=== PATIENT | female | born 1975 | race Caucasian/White ===

== ENCOUNTER 2018-04-04 17:12 | Outpatient (CLI) | payer BC, MEDICAID | END 2018-04-04 18:14 | disposition home or self-care (01) | LOC: LC 17:12 | PROVIDERS: ATTEND Obstetrics & Gynecology | PROC: 4A1HXCZ Monitoring of Products of Conception, Cardiac Rate, External Approach (ICD-10-PCS; principal; 2018-04-04) | DX: O09.523 Supervision of elderly multigravida, third trimester (principal); O26.893 Other specified pregnancy related conditions, third trimester; R00.0 Tachycardia, unspecified; Z3A.36 36 weeks gestation of pregnancy | CPT/HCPCS: 59025 ==

== ENCOUNTER 2018-04-11 16:34 | Outpatient (CLI) | payer BC, MEDICAID | END 2018-04-11 17:04 | disposition home or self-care (01) | LOC: LC 16:34 | PROVIDERS: ATTEND Obstetrics & Gynecology | DX: Z34.83 Encounter for supervision of other normal pregnancy, third trimester (principal) | CPT/HCPCS: 59025 ==

== ENCOUNTER 2018-04-18 14:16 | Outpatient (CLI) | payer BC, MEDICAID ==
--- NOTE | 2018-04-18 18:21 | Non Stress Test Report ---
Non Stress Test Datetime Report Generated by CPN: 04/18/2018 18:20 DEMOGRAPHIC Test Number: 1 Test Number: 1 EGA NST: 38.1 EGA NST: 37.1 EGA NST: 36.1 INDICATION Indication for Study: Ordered by Provider; Other Indication for Study: Ordered by Provider Indication for Study: Ordered by Provider Indication for Study (NST) Other: AMA Indication for Study (NST) Other: tachycardia in office VITAL SIGNS Temperature - NST: 98.4 Temperature - NST: 98.3 Pulse - NST: 93 Pulse - NST: 70 RESP - NST: 16 RESP - NST: 16 NBPSYS NST: 143 NBPSYS NST: 118 NBPDIA NST: 74 NBPDIA NST: 67 MONITORING Monitor Explained: Monitor Explained; Test Explained; Patient Verbalized Understanding Monitor Explained: Monitor Explained; Test Explained; Patient Verbalized Understanding Monitor Explained: Monitor Explained; Test Explained; Patient Verbalized Understanding Monitor Explained: Monitor Explained; Test Explained Time on Monitor: 04/18/2018 15:45 Time on Monitor: 04/11/2018 16:42 Time on Monitor: 04/04/2018 17:34 Time on Monitor: 04/04/2018 17:34 Time off Monitor: 04/18/2018 16:50 Time off Monitor: 04/11/2018 17:02 Time off Monitor: 04/04/2018 18:06 NST Duration: 65 NST Duration: 20 NST Duration: 32 NST INTERVENTIONS NST Interventions: PO Hydration; Reposition Patient NST Interventions: PO Hydration NST Interventions: PO Hydration; Reposition Patient Physician Notified NST: Hannah Theodore CNM Physician Notified NST: Yane Luz CNM Physician Notified NST: Dr Miranda BABY A: [id number] BABY A Movement : Present Movement : Present Movement : Present Movement : Present Contraction Frequency : denies Contraction Frequency : iregular Contraction Frequency : 0 Contraction Frequency : 0 FHR Baseline : 150 FHR Baseline : 130 FHR Baseline : 135 FHR Baseline : 135 Accelerations : Prolonged Accelerations : 15X15 Accelerations : 15X15 Accelerations : 15X15 Decelerations : None Decelerations : None Decelerations : None Variability : Moderate 6-25bpm Variability : Moderate 6-25bpm Variability : Moderate 6-25bpm Variability : Moderate 6-25bpm NST Review: Meets Criteria for Reactive NST NST Review: Meets Criteria for Reactive NST NST Review: Meets Criteria for Reactive NST NST Review: Meets Criteria for Reactive NST NST Review: Meets Criteria for Reactive NST NST Review and Verified By : Iona RICHARDSON NST Review and Verified By : VALORIE SHARMA RN NST Review and Verified By : C. Mcarthur,RN NST Results: Reactive NST Results: Reactive NST Results: Reactive NST Results: Reactive NST REPORT Report Trigger: Send Report
== END 2018-04-18 16:59 | disposition home or self-care (01) ==
LOC: LC 14:16
PROVIDERS: ATTEND Obstetrics & Gynecology
PROC: 4A1HXCZ Monitoring of Products of Conception, Cardiac Rate, External Approach (ICD-10-PCS; principal; 2018-04-18)
DX: O36.8330 Maternal care for abnormalities of the fetal heart rate or rhythm, third trimester, not applicable or unspecified (principal); O09.523 Supervision of elderly multigravida, third trimester; Z3A.38 38 weeks gestation of pregnancy
CPT/HCPCS: 59025

== ENCOUNTER 2018-04-21 11:17 | Outpatient (CLI) | payer BC, MEDICAID ==
--- NOTE | 2018-04-21 12:18 | Non Stress Test Report ---
Non Stress Test Datetime Report Generated by CPN: 04/21/2018 12:18 DEMOGRAPHIC EGA NST: 38.4 INDICATION Indication for Study: Ordered by Provider MONITORING Monitor Explained: Monitor Explained; Test Explained Time on Monitor: 04/21/2018 11:25 Time off Monitor: 04/21/2018 11:52 NST Duration: 27 NST INTERVENTIONS NST Interventions: PO Hydration NST Interventions Other: [place] Physician Notified NST: Zahraa Merchant CNM BABY A: [id number] BABY A Movement : Present Contraction Frequency : irregular FHR Baseline : 140 Accelerations : 15X15 Decelerations : None Variability : Moderate 6-25bpm NST Review: Does Not Meet Criteria for Reactive NST NST Review and Verified By : ANCA Caro Results: Reactive NST REPORT Report Trigger: Send Report
== END 2018-04-21 11:58 | disposition home or self-care (01) ==
LOC: LC 11:17
PROVIDERS: ATTEND Obstetrics & Gynecology Gynecology
PROC: 4A1HXCZ Monitoring of Products of Conception, Cardiac Rate, External Approach (ICD-10-PCS; principal; 2018-04-21)
DX: Z34.93 Encounter for supervision of normal pregnancy, unspecified, third trimester (principal)
CPT/HCPCS: 59025

== ENCOUNTER 2018-04-26 15:30 | Outpatient (CLI) | payer BC, MEDICAID ==
[2018-04-26 17:05] LABS: APPEARANCE,URINE SLIGHTLY-CLOUDY; BILIRUBIN,URINE NEGATIVE (NEGATIVE); COLOR,URINE YELLOW; GLUCOSE, URINE NEGATIVE (NEGATIVE); KETONES,URINE NEGATIVE (NEGATIVE); LEUKOCYTE ESTERASE,URINE TRACE (NEGATIVE); NITRITE,URINE NEGATIVE (NEGATIVE); PROTEIN,URINE 30 mg/dL (NEGATIVE); URINE SPECIFIC GRAVITY 1.014; UROBILINOGEN,URINE NEGATIVE mg/dL (<2.0)
[2018-04-26 17:22] LABS: URINE AMPHETAMINES SCREEN NEGATIVE; URINE BARBITURATES SCREEN NEGATIVE; URINE BENZODIAZEPINES SCREEN NEGATIVE; URINE COCAINE SCREEN NEGATIVE; URINE MARIJUANA (THC) SCREEN NEGATIVE; URINE METHADONE SCREEN NEGATIVE; URINE PHENCYCLIDINE SCREEN NEGATIVE
[2018-04-26] MEDS ORDERED: HYDROXYZINE PAMOATE 50 MG CAPSULE ONE (17:42)
[2018-04-26] MEDS ORDERED: HYDROXYZINE PAMOATE 50 MG CAPSULE PO ONE (17:47)
== END 2018-04-26 17:58 | disposition home or self-care (01) ==
LOC: LC 15:30
PROVIDERS: ATTEND Obstetrics & Gynecology
PROC: 4A1HXCZ Monitoring of Products of Conception, Cardiac Rate, External Approach (ICD-10-PCS; principal; 2018-04-26)
DX: O47.1 False labor at or after 37 completed weeks of gestation (principal); O09.523 Supervision of elderly multigravida, third trimester; Z3A.39 39 weeks gestation of pregnancy
CPT/HCPCS: 59025; 80307; 81005

== ENCOUNTER 2018-04-26 20:21 | Inpatient (IN) | payer BC, MEDICAID ==
[2018-04-26 21:17] LABS: APPEARANCE,URINE CLEAR; BILIRUBIN,URINE NEGATIVE (NEGATIVE); COLOR,URINE STRAW; GLUCOSE, URINE NEGATIVE (NEGATIVE); KETONES,URINE TRACE mg/dL (NEGATIVE); LEUKOCYTE ESTERASE,URINE NEGATIVE (NEGATIVE); NITRITE,URINE NEGATIVE (NEGATIVE); PROTEIN,URINE NEGATIVE (NEGATIVE); URINE SPECIFIC GRAVITY 1.003; UROBILINOGEN,URINE NEGATIVE mg/dL (<2.0)
[2018-04-26 21:23] LABS: ABSOLUTE MONOCYTES (AUTO) 0.7 10^3/uL (0.1-1.4); ABSOLUTE NEUT (AUTO) 9.6 10^3/uL (1.7-8.2); BASOPHILS % (AUTO) 0.2 % (0-2); EOSINOPHILS % (AUTO) 0.1 % (0-6); HEMATOCRIT 37.3 % (36.0-47.0); HEMOGLOBIN 12.6 g/dL (12.0-15.5); LYMPHOCYTES % (AUTO) 16.5 % (13-45); MEAN CORPUSCULAR HEMOGLOBIN 28.7 pg (27.0-33.4); MEAN CORPUSCULAR HGB CONC 33.8 g/dL (32.0-36.0); MEAN CORPUSCULAR VOLUME 85 fl (80-97); MONOCYTES % (AUTO) 5.6 % (3-13); PLATELET COUNT 228 10^3/uL (150-450); RED BLOOD COUNT 4.41 10^6/uL (3.72-5.28); RED CELL DISTRIBUTION WIDTH 14.1 % (11.5-14.0); SEGMENTED NEUTROPHILS % (AUTO) 77.6 % (42-78); TOTAL CELLS COUNTED % (AUTO) 100 %; WHITE BLOOD COUNT 12.4 10^3/uL (4.0-10.5)
[2018-04-26] MEDS ORDERED: CEFAZOLIN 2 GM/D5W RTU 0 GM/0 ML RTUPB IV ONE (21:30)
[2018-04-26] MEDS ORDERED: CITRIC ACID/SODIUM CITRATE ORAL SOLN 15 ML UDCUP ONE (21:30)
[2018-04-26] MEDS ORDERED: CEFAZOLIN 2 GM/D5W RTU 2 GM/50 ML RTUPB IV ONE (21:40)
[2018-04-26] MEDS ORDERED: MISOPROSTOL 0.2 MG TABLET ONE (21:40)
[2018-04-26] MEDS ORDERED: METHYLERGONOVINE MALEATE INJ/PF 0.2 MG/1 ML AMPULE ONE (21:41)
[2018-04-26 21:55] LABS: URINE AMPHETAMINES SCREEN NEGATIVE; URINE BARBITURATES SCREEN NEGATIVE; URINE BENZODIAZEPINES SCREEN NEGATIVE; URINE COCAINE SCREEN NEGATIVE; URINE MARIJUANA (THC) SCREEN NEGATIVE; URINE METHADONE SCREEN NEGATIVE; URINE PHENCYCLIDINE SCREEN NEGATIVE
[2018-04-26] MEDS ORDERED: OXYTOCIN 10 UNIT/ML VIAL ONE (21:58)
[2018-04-26] MEDS ORDERED: OXYTOCIN/NORMAL SALINE 20 UNIT/1,000 ML RTUINJ ONE (21:59)
[2018-04-26] MEDS ORDERED: ONDANSETRON HCL INJ/PF 4 MG/2 ML SDV ONE (21:59)
[2018-04-26] MEDS ORDERED: BUPIVACAINE HCL/DEX-WATER/PF 15 MG/2 ML AMPULE ONE (21:59)
[2018-04-26] MEDS ORDERED: EPHEDRINE SULFATE INJ 50 MG/1 ML AMPULE ONE (21:59)
[2018-04-26] MEDS ORDERED: FENTANYL CITRATE INJ/PF 100 MCG/2 ML AMPUL ONE ×2 (21:59→23:40)
[2018-04-26] MEDS ORDERED: MIDAZOLAM 2 MG/2 ML INJ ONE (21:59)
--- NOTE | 2018-04-26 22:15 | Admission Physical ---
Datetime Report Generated by CPN: 04/26/2018 22:14 CURRENT ADMISSION Chief Complaint: Uterine Contractions Indication for Induction: Not Applicable Admit Impression : Term, Intrauterine Admit Impression- Other: pt scheduled for primary c/section on Apr 29 due to suspected macrosomia. Desires to proceed with c/section at this time. Admit Plan: Admit to Unit; Initiate Section Protocol ALLERGIES Medication Allergies: No Medication Allergies: No Known Allergies (04/26/2018) Latex: No Latex Allergies Food Allergies: none Environmental Allergies: none OBSTETRICAL HISTORY EDC: 05/01/2018 00:00 : 4 Para: 2 Term: 2 : 0 SAB: 0 IAB: 0 Ectopic: 0 Livin Cesareans: 0 VBACs: 0 Multiple Births: 0 Gestational Diabetes: No Rh Sensitization: No Incompetent Cervix: No MIQUEL: No Infertility: No ART Treatment: No Uterine Anomaly: No IUGR: No Hx Previous C/S: No Macrosomia: No Hx Loss/Stillborn: No PIH: No Hx : No Placenta Previa/Abruption: No Depression/PP Depression: No PTL/PROM: No Post Hemorrhage: No Current Procedures: Ultrasound; NST Obstetrical History Comments: G1-2002 EAB G2- 2007 41 week G3- 2011 41 weeks G4- current SEE RECORDS Alcohol: No Marijuana : No Cocaine: No Other Illicit Drugs: No Cigarettes: Former Smoker. [id number] MEDICAL HISTORY Diabetes: No Blood Transfusion: No Pulmonary Disease (Asthma, TB): No Breast Disease: No Hypertension: No Welt Insole Channeler Surgery: No Heart Disease: No Hosp/Surgery: Yes Autoimmune Disorder: No Anesthetic Complications: No Kidney Disease: No Abnormal Pap Smear: No Neuro/Epilepsy: No Psychiatric Disorders: Yes Other Medical Diseases: No Hepatitis/Liver Disease: No Significant Family History: No Varicosities/Phlebitis: No Trauma/Violence : No Thyroid Dysfunction: No Medical History Comments: childbirth, tonsilectomy at 19 y/o, anxiety- no meds INFECTIOUS HISTORY Gonorrhea: No Genital Herpes: No Chlamydia: No Tuberculosis: No Syphilis: No Hepatitis: No HIV/AIDS Exposure: No Rash or Viral Illness: No HPV: No PHYSICAL EXAM General: Normal HEENT: Normal Neurologic: Normal Thyroid: Normal Heart: Normal Lungs: Normal Breast: Normal Back: Normal Abdomen: Normal Genitourinary Exam: Normal Extremities: Normal DTRs: Normal Pelvic Type: Adequate Vital Signs: Reviewed; Within Normal Limits VAGINAL EXAM Dilatation: 3 Effacement: 100 Station: -1 MEMBRANES Pooling: Positive Membranes: Ruptured Amniotic Fluid Color: Clear FETUS A EGA: 39.2 Monitoring: External US FHR- Baseline: 150 Variability: Moderate 6-25bpm Accelerations: 15X15 Decelerations: None FHR Category: Category I Estimated Weight (gm): 5000 Presentation: Vertex Admit Comment: counseled on risks/beneftis/alternatives and pt elects to proceed with c/section. declines BTL in favor of vasectomy. PLANS FOR LABOR AND DELIVERY Labor and Delivery: None Pain Management: None Feeding Preference: Formula Benefit of Breast Feed Discussed: Yes Circumcision: Yes INFORMED CONSENT Signature: with User ID: [email or web address]
[2018-04-26] MEDS ORDERED: OXYCODONE-ACETAMINOPHEN 5-325 MG TABLET PO PRN ×3 (22:32→23:04)
[2018-04-26] MEDS ORDERED: PROMETHAZINE HCL INJ 25 MG/1 ML VIAL IV PRN ×3 (22:32→23:04)
[2018-04-26] MEDS ORDERED: FENTANYL CITRATE INJ/PF 100 MCG/2 ML AMPUL IV PRN ×2 (22:32)
[2018-04-26] MEDS ORDERED: DIPHENHYDRAMINE HCL 50 MG/ML VIAL IV PRN (22:32)
[2018-04-26] MEDS ORDERED: ACETAMINOPHEN 1,000 MG/100 ML RTUPB IV PRN (23:04)
[2018-04-26] MEDS ORDERED: MEASLES,MUMPS&RUBELLA VACC/PF 0.5 ML VIAL SUBCUT PRN (23:04)
[2018-04-26] MEDS ORDERED: RINGERS SOLUTION,LACTATED 1,000 ML IV PRN (23:04)
[2018-04-26] MEDS ORDERED: MORPHINE SULFATE 10 MG/ML INJ IV PRN (23:04)
[2018-04-26] MEDS ORDERED: ACETAMINOPHEN 325 MG TABLET PO PRN (23:04)
[2018-04-26] MEDS ORDERED: DIPH/PERTUSS(ACELL)/TETANUS VAC/PF 0.5 ML SYR (>=10YO) IM PRN (23:04)
[2018-04-26] MEDS ORDERED: OXYTOCIN/NORMAL SALINE 20 UNIT/1,000 ML RTUINJ IV PRN (23:04)
[2018-04-26] MEDS ORDERED: MEPERIDINE HCL/PF INJ 25 MG/1 ML DISP.SYRIN ONE (23:19)
[2018-04-26] MEDS: MEPERIDINE HCL/PF INJ 25 MG/1 ML DISP.SYRIN IV PRN ×2 (23:24→23:31)
[2018-04-26] MEDS: FENTANYL CITRATE INJ/PF 100 MCG/2 ML AMPUL IV PRN (23:42)
[2018-04-26] MEDS ORDERED: MORPHINE SULFATE 10 MG/ML INJ ONE (23:55)
[2018-04-26] MEDS: MORPHINE SULFATE 10 MG/ML INJ IV PRN (23:58)
[2018-04-27] MEDS: IBUPROFEN 800 MG TABLET PO SCH ×4 (00:06→18:46)
[2018-04-27] MEDS ORDERED: KETOROLAC TROMETHAMINE INJ/PF 30 MG/1 ML SDV ONE (00:07)
[2018-04-27] MEDS: FENTANYL CITRATE INJ/PF 100 MCG/2 ML AMPUL IV PRN (00:16)
[2018-04-27] MEDS: MORPHINE SULFATE 10 MG/ML INJ IV PRN (00:54)
--- NOTE | 2018-04-27 01:27 | Delivery Summary ---
Del Sum A-C Datetime Report Generated by CPN: 04/27/2018 01:27 DELIVERY PERSONNEL DELIVERY PERSONNEL: [id number] Delivery Doctor:: Georgette Miranda MD Anesthesiologist:: Arun Melendrez MD TIRE REPAIR MECHANIC:: Tyrel Welch CRNA Labor and Delivery Nurse:: Kathryn Cahn RN Driver/Guide:: Kathryn Chan RN Neonatal Nurse Practitioner:: ALEXIS Dave Nursery Nurse:: Rosamaria Koenig RN Green Marketing Analyst/MARKETING TECHNOLOGIST: ST Monique Green Marketing Analyst/MARKETING TECHNOLOGIST: Linette Alcantara MATERNAL INFORMATION Delivery Anesthesia: Spinal Medications After Delivery: Pitocin Drip 20 Units/1000ml NSS Maternal Complications: None LABOR SUMMARY EDC: 05/01/2018 00:00 No. Babies in Womb: 1 Attempted: No Labor Anesthesia: None LABOR INFORMATION Reason for Induction: Not Applicable Onset of Labor: 04/26/2018 19:30 Oxytocin: N/A Group B Beta Strep: Negative Antibiotics # of Doses: 0 Steroids Given: None Reason Steroids Not Administered: Not Applicable MEMBRANES Membranes Rupture Method: Spontaneous Rupture of Membranes: 04/26/2018 19:30 Length of Rupture (hr): 2.92 Amniotic Fluid Color: Clear Amniotic Fluid Amount: Moderate Amniotic Fluid Odor: Normal STAGES OF LABOR Stage 3 hr: 0 Stage 3 min: 1 Total Time in Labor hr: 2 Total Time in Labor min: 56 VAGINAL DELIVERY Episiotomy: None Laceration #1: None Laceration Extension #1: N/A Laceration Repair: Not Applicable Sponge Count Correct: N/A Sharps Count Correct: N/A CSECTION DELIVERY Primary Indication: Other Other Primary Indication: Suspected Macrosomia CSection Urgency: Non-Scheduled CSection Incidence: Primary Labor: No Labor Elective: Nonelective CSection Incision: Lower Uterine Transverse BABY A INFORMATION Delivery Date/Time: 04/26/2018 22:25 Method of Delivery: Born in Route : No : N/A Forceps: N/A Vacuum Extraction: N/A Shoulder Dystocia : No PRESENTATION/POSITION BABY A Presentation: Cephalic Cephalic Presentation: Vertex Breech Presentation: N/A PLACENTA INFORMATION BABY A Placenta Delivery Time : 04/26/2018 22:26 Placenta Method of Delivery: Manual Removal Placenta Status: Delivered SCORES BABY A Heart Rate 1 min: >100 bpm Resp Effort 1 min: Good Cry Reflex Irritability 1 min: Cough or Sneeze or Pulls Away Muscle Tone 1 min: Active Motion Color 1 min: Blue/Pale Resuscitation Effort 1 min: Tactile Stimulation SCORE 1 MIN: 8 Heart Rate 5 min: >100 bpm Resp Effort 5 min: Good Cry Reflex Irritability 5 min: Cough or Sneeze or Pulls Away Muscle Tone 5 min: Active Motion Color 5 min: Body [place], Extremities Blue Resuscitation Effort 5 min: Tactile Stimulation SCORE 5 MIN: 9 INFANT INFORMATION BABY A Gestational Age at Delivery: 39.2 Gestational Status: Full Term- 39- 40.6 Weeks Infant Outcome : Liveborn Infant Condition : Stable Sex: Male IDENTIFICATION BABY A Infant Verification Date/Time: 04/26/2018 23:13 ID Band Number: [id number] Mother's Name Verified: Yes RN Verifying Infant: Evelyn Chan, ANCA Additional Verifying Personnel: Cj Young RN WEIGHT/LENGTH BABY A Birthweight (gm): 4805 Infant Weight (lb): 10 Weight (oz): 9 Infant Length (in): 23.00 Infant Length (cm): 58.42 CORD INFORMATION BABY A No. Cord Vessels: 3 Nuchal Cord : Around Neck x1, Loose Cord Blood Taken: Yes-For Storage (Mom's Blood type +) Infant Suction: None ASSESSMENT BABY A Infant Complications: None Physical Findings at Delivery: Within Normal Limits Infant Respirations: Appears Normal As400 Programmer Analyst/ALS Called : No Care By: Yane Koenig RN Transferred To: Nursery BABY B INFORMATION : N/A
[2018-04-27] MEDS: OXYCODONE-ACETAMINOPHEN 5-325 MG TABLET PO PRN ×5 (02:21→20:25)
[2018-04-27] MEDS ORDERED: METHYLERGONOVINE MALEATE INJ/PF 0.2 MG/1 ML AMPULE ONE (03:30)
[2018-04-27] MEDS ORDERED: METHYLERGONOVINE MALEATE INJ/PF 0.2 MG/1 ML AMPULE IM ONE (04:00)
[2018-04-27] MEDS ORDERED: METHYLERGONOVINE MALEATE 0.2 MG TABLET PO ONE (05:15)
[2018-04-27] MEDS ORDERED: METHYLERGONOVINE MALEATE 0.2 MG TABLET ONE (05:15)
[2018-04-27 06:25] LABS: HEMATOCRIT 29.8 % (36.0-47.0); MEAN CORPUSCULAR HEMOGLOBIN 28.6 pg (27.0-33.4); MEAN CORPUSCULAR HGB CONC 33.7 g/dL (32.0-36.0); MEAN CORPUSCULAR VOLUME 85 fl (80-97); PLATELET COUNT 194 10^3/uL (150-450); RED BLOOD COUNT 3.51 10^6/uL (3.72-5.28); RED CELL DISTRIBUTION WIDTH 14.3 % (11.5-14.0)
[2018-04-27] MEDS: KETOROLAC TROMETHAMINE INJ/PF 30 MG/1 ML SDV IV SCH ×2 (07:32→16:18)
--- NOTE | 2018-04-27 07:57 | PDOC PROGRESS REPORT ---
Subjective Progress Note for:: 04/27/18 Subjective:: Patient states that she feels good; pain controlled. Decreasing lochia. Patient had some heavy lochia immediately postoperatively. Patient has not ambulated yet. Patient denies chest pain and shortness of breath. Sinha still in place with concentrated urine and minimal output. Reason For Visit: Physical Exam - Physical Exam Vital Signs: Temp Pulse Resp BP Pulse Ox 98.4 F 80 20 133/69 H 100 04/27/18 06:07 04/27/18 06:07 04/27/18 05:16 04/27/18 06:07 04/27/18 06:07 Intake & Output 04/26/18 04/27/18 04/28/18 06:59 06:59 06:59 Intake Total 300 Output Total 500 Balance -200 Weight 99.3 kg General appearance: PRESENT: no acute distress Respiratory exam: PRESENT: clear to auscultation baldomero Cardiovascular exam: PRESENT: RRR GI/Abdominal exam: PRESENT: normal bowel sounds, soft, tenderness - Appropriate tenderness Extremities exam: ABSENT: calf tenderness, clubbing - PAS in place, full ROM, joint swelling, pedal edema, tenderness, +1 edema, +2 edema, other Result Laboratory Results: 04/27/18 05:58 04/26/18 04/26/18 04/26/18 20:32 20:57 20:58 WBC 12.4 H RBC 4.41 Hgb 12.6 Hct 37.3 MCV 85 MCH 28.7 MCHC 33.8 RDW 14.1 H Plt Count 228 Seg Neutrophils % 77.6 Lymphocytes % 16.5 Monocytes % 5.6 Eosinophils % 0.1 Basophils % 0.2 Absolute Neutrophils 9.6 H Absolute Lymphocytes 2.0 Absolute Monocytes 0.7 Absolute Eosinophils 0.0 Absolute Basophils 0.0 Urine Color STRAW Urine Appearance CLEAR Urine pH 7.0 Ur Specific [place] 1.003 Urine Protein NEGATIVE Urine Glucose (UA) NEGATIVE Urine Ketones TRACE H Urine Blood SMALL H Urine Nitrite NEGATIVE Ur Leukocyte Esterase NEGATIVE Blood Type A POSITIVE Antibody Screen NEGATIVE 04/27/18 05:58 WBC 17.0 H RBC 3.51 L Hgb 10.0 L D Hct 29.8 L MCV 85 MCH 28.6 MCHC 33.7 RDW 14.3 H Plt Count 194 Seg Neutrophils % Lymphocytes % Monocytes % Eosinophils % Basophils % Absolute Neutrophils Absolute Lymphocytes Absolute Monocytes Absolute Eosinophils Absolute Basophils Urine Color Urine Appearance Urine pH Ur Specific [place] Urine Protein Urine Glucose (UA) Urine Ketones Urine Blood Urine Nitrite Ur Leukocyte Esterase Blood Type Antibody Screen Assessment & Plan - Diagnosis (1) Status post primary low transverse section Is this a current diagnosis for this admission?: Yes - Time Time Spent with patient: Less than 15 minutes - Plan Summary Plan Summary: 1. Continue postoperative care 2. 500 mL fluid bolus secondary to concentrated urine and decreased urine output
[2018-04-27] MEDS ORDERED: NORMAL SALINE 500 ML IV ONE (09:00)
[2018-04-27] MEDS: DOCUSATE SODIUM 100 MG CAPSULE PO SCH ×2 (09:49→17:17)
[2018-04-27] MEDS: PRENATAL VITAMIN W DHA CAPSULE PO SCH (09:49)
[2018-04-27] MEDS: METHYLERGONOVINE MALEATE 0.2 MG TABLET PO SCH ×4 (09:56→20:26)
--- NOTE | 2018-04-27 15:35 | OPERATIVE REPORT E ---
Operative Report NAME: CAROLYN NUNN : 1975 AGE: 42Y DATE OF SURGERY: ROOM: 227 PREOPERATIVE DIAGNOSIS: Intrauterine at 39 weeks and 3 days, suspected macrosomia and rupture of membranes. POSTOPERATIVE DIAGNOSIS: Intrauterine at 39 weeks and 3 days, suspected macrosomia and rupture of membranes. SURGEON: JACQUELINE KLINE M.D. ANESTHESIA: _Parvin_ with a spinal. FINDINGS: A male infant, cephalic presentation, with of 8 and 9, weight 10 pounds 9 ounces. ESTIMATED BLOOD LOSS: 650 mL. COMPLICATIONS: None. PROCEDURE: A low transverse hysterotomy section. PROCEDURE IN DETAIL: The patient was taken to the operating room, prepared and draped in a normal sterile fashion in the supine position with a leftward tilt. A transverse skin incision was made with a scalpel, carried through to the underlying layer of fascia with the same scalpel. The fascia was excised in the midline and extended laterally with Rojo. The fascia was then dissected from the rectus muscle bluntly and the rectus muscle was divided. The peritoneal cavity was entered bluntly with surgeon finger fracture. The bladder blade was inserted. The hysterotomy was nicked with a scalpel and extended laterally with surgeon finger fracture. The infant was then delivered atraumatically. The nose and mouth were suctioned with a suction bulb and the cord was clamped and cut and the was handed off to waiting sampler and test preparer. Cord blood was collected. The placenta was removed manually. The uterus was exteriorized and cleared or clots and debris. The hysterotomy was closed with 0 Monocryl in a running fashion. In the second layer the same suture was used to imbricate to ensure hemostasis. The uterus was returned to the abdomen. The peritoneal cavity was cleared of clots and debris. The rectus muscle and peritoneum were reapproximated with a mattress suture of 2-0 chromic. The fascia was closed with 0 Vicryl. The subcutaneous layer was closed with plain catgut, and the skin was closed with 4-0 Vicryl. The patient tolerated the procedure well. Sponge, lap, and needle counts were correct x2, and the patient was taken to recovery in stable condition. DICTATING PHYSICIAN: JACQUELINE KLINE M.D. [id number] PHY#: [id number] ID: [id number] JOB#: [id number] ACCT: [id number] cc:JACQUELINE KLINE M.D. > FRANCIS
[2018-04-27] MEDS: SIMETHICONE 80 MG TAB.CHEW PO PRN (21:13)
[2018-04-28] MEDS: OXYCODONE-ACETAMINOPHEN 5-325 MG TABLET PO PRN ×5 (01:09→22:12)
[2018-04-28] MEDS: METHYLERGONOVINE MALEATE 0.2 MG TABLET PO SCH ×6 (01:09→22:12)
[2018-04-28] MEDS: IBUPROFEN 800 MG TABLET PO SCH ×3 (08:23→22:12)
[2018-04-28] MEDS: KETOROLAC TROMETHAMINE INJ/PF 30 MG/1 ML SDV IV SCH ×2 (08:23→17:52)
[2018-04-28] MEDS: DOCUSATE SODIUM 100 MG CAPSULE PO SCH ×2 (09:33→17:50)
[2018-04-28] MEDS: PRENATAL VITAMIN W DHA CAPSULE PO SCH (09:33)
--- NOTE | 2018-04-28 12:05 | PDOC PROGRESS REPORT ---
Subjective-OB Progress Note for:: 04/28/18 Physical Exam (OB) Vital Signs: Temp Pulse Resp BP Pulse Ox 98.5 F 87 17 127/70 H 100 04/28/18 08:15 04/28/18 08:15 04/28/18 08:15 04/28/18 08:15 04/28/18 08:15 Intake & Output 04/27/18 04/28/18 04/29/18 06:59 06:59 06:59 Intake Total 300 4060 Output Total 500 1050 Balance -200 3010 Weight 99.3 kg - PIH/Pre-Eclampsia DTR's: 1 + Clonus: Negative Headache: Absent Epigastric Pain: No Visual Changes: No - Dressing Removed: No Incision: Dressing Closure Type: op site - Lochia Lochia Amount: Scant < 10 ml Lochia Color: Rubra/Red - Abdomen Description: Soft, Round Hernia Present: No Bowel Sounds: Normoactive Flatus Presence: Absent Stool: No Fundal Description: Firm, Midline Fundal Height: u/u - u/2 Objective-Diagnostic Laboratory: 04/27/18 05:58
[2018-04-28] MEDS: SIMETHICONE 80 MG TAB.CHEW PO PRN (12:16)
[2018-04-29] MEDS: METHYLERGONOVINE MALEATE 0.2 MG TABLET PO SCH ×2 (04:03→05:31)
[2018-04-29] MEDS: OXYCODONE-ACETAMINOPHEN 5-325 MG TABLET PO PRN ×2 (05:31→12:05)
[2018-04-29] MEDS: IBUPROFEN 800 MG TABLET PO SCH ×3 (05:31→12:03)
[2018-04-29] MEDS: KETOROLAC TROMETHAMINE INJ/PF 30 MG/1 ML SDV IV SCH (06:40)
[2018-04-29 09:29] VITALS: BP 112/68
--- NOTE | 2018-04-29 09:31 | PDOC PROGRESS REPORT ---
Subjective-OB Progress Note for:: 04/29/18 Subjective: Doing well, no c/o, pain under control, decrease bleeding, eating well,passing gas, hsb at BS Physical Exam (OB) Vital Signs: Temp Pulse Resp BP Pulse Ox 97.5 F 54 L 22 H 112/68 100 04/29/18 08:00 04/29/18 08:00 04/29/18 08:00 04/29/18 08:00 04/29/18 08:00 Intake & Output 04/28/18 04/29/18 04/30/18 06:59 06:59 06:59 Intake Total 4060 1000 Output Total 1050 Balance 3010 1000 - PIH/Pre-Eclampsia DTR's: 1 + Clonus: Negative Headache: Absent Epigastric Pain: No Visual Changes: No - Dressing Removed: No Incision: Dressing Closure Type: op site - Lochia Lochia Amount: Scant < 10 ml Lochia Color: Rubra/Red - Abdomen Description: Soft, Round Hernia Present: No Fundal Description: Firm, Midline Fundal Height: u/u - u/2 Objective-Diagnostic Laboratory: 04/27/18 05:58 Assessment and Plan(PN) - Assessment and Plan (1) macrosomia Qualifiers: Fetus number: single or unspecified fetus Is this a current diagnosis for this admission?: Yes (2) Status post primary low transverse section Is this a current diagnosis for this admission?: Yes - Time Spent with Patient Time with patient: Less than 15 minutes Medications reviewed and adjusted accordingly: Yes - Disposition Anticipated Discharge: Home Within: within 24 hours
--- NOTE | 2018-04-29 09:36 | PDOC DISCHARGE SUMMARY ---
Final Diagnosis Discharge Date: 04/29/18 - Final Diagnosis (1) macrosomia Is this a current diagnosis for this admission?: Yes (2) Status post primary low transverse section Is this a current diagnosis for this admission?: Yes Discharge Data - Discharge Medication Prescriptions: Oxycodone HCl/Acetaminophen [Percocet 5-325 mg Tablet] 1 tab PO Q4HP PRN #20 tablet PRN Reason: Home Medications: Pediatric Multivitamin No.101 [Gummy] 1 each PO DAILY 04/04/18 Oxycodone HCl/Acetaminophen [Percocet 5-325 mg Tablet] 1 tab PO Q4HP PRN #20 tab let 04/29/18 Gestational Age: 39.2 Reason(s) for Admission: Ceasarean Section-Primary, Advanced Maternal Age Admission Note: Macrosomnia Procedures: NST, Ultrasound Intrapartum Procedure(s): : Low Cervical, Transverse - Point Baker Data Baby 1 Male Weight: 4.791 kg Home with Mother: Yes Complications: No - Diagnosis Test Laboratory: Temp Pulse Resp BP Pulse Ox 97.5 F 54 L 22 H 112/68 100 04/29/18 08:00 04/29/18 08:00 04/29/18 08:00 04/29/18 08:00 04/29/18 08:00 04/26/18 04/26/18 04/27/18 20:32 20:57 05:58 RBC 4.41 3.51 L Hgb 12.6 10.0 L D Hct 37.3 29.8 L Urine Opiates Screen NEGATIVE - Discharge information/Instructions Discharge Activity: Activity As Tolerated, No Lifting Over 10 Pounds, No Lifting/Push/Pulling, Pelvic Rest Discharge Diet: As Tolerated, Regular Disposition: HOME, SELF-CARE Follow up with: [facility] in: 1, Weeks
[2018-04-29] MEDS ORDERED: METHYLERGONOVINE MALEATE 0.2 MG TABLET PO SCH (10:00)
[2018-04-29] MEDS: PRENATAL VITAMIN W DHA CAPSULE PO SCH (10:40)
[2018-04-29] MEDS: DOCUSATE SODIUM 100 MG CAPSULE PO SCH (10:40)
== END 2018-04-29 12:40 | disposition home or self-care (01) | DRG 788 ==
LOC: LC 20:21 → LR 20:48 → 2S 04-27 01:04
PROVIDERS: ADMIT Obstetrics & Gynecology; ATTEND Obstetrics & Gynecology
PROC: 10D00Z1 Extraction of Products of Conception, Low, Open Approach (ICD-10-PCS; principal; 2018-04-26)
DX: O36.63X0 Maternal care for excessive fetal growth, third trimester, not applicable or unspecified (principal); O69.81X0 Labor and delivery complicated by cord around neck, without compression, not applicable or unspecified; Z3A.39 39 weeks gestation of pregnancy; Z37.0 Single live birth
CPT/HCPCS: 1961; 36415; 80307; 81005; 85025; 85027; 86592; 86850; 86900; 86901; 94799; J0690; J1885; J2175; J2210; J2250; J2270; J2405; J2590; J3010; J3490; J7040

== ENCOUNTER 2019-09-02 11:30 | Emergency (ER) | payer BC, MEDICAID ==
[2019-09-02 11:35] VITALS: BP 139/72
[2019-09-02 12:19] LABS: ABSOLUTE BASOPHILS # (AUTO) 0.1 10^3/uL (0.0-0.2); ABSOLUTE EOSINOPHILS # (AUTO) 0.1 10^3/uL (0.0-0.6); ABSOLUTE LYMPHOCYTES (AUTO) 1.8 10^3/uL (0.5-4.7); ABSOLUTE MONOCYTES (AUTO) 0.6 10^3/uL (0.1-1.4); ABSOLUTE NEUT (AUTO) 6.2 10^3/uL (1.7-8.2); BASOPHILS % (AUTO) 0.8 % (0-2); EOSINOPHILS % (AUTO) 0.9 % (0-6); HEMOGLOBIN 15.1 g/dL (12.0-15.5); LYMPHOCYTES % (AUTO) 20.2 % (13-45); MEAN CORPUSCULAR HGB CONC 35.1 g/dL (32.0-36.0); MEAN CORPUSCULAR VOLUME 91 fl (80-97); PLATELET COUNT 253 10^3/uL (150-450); RED BLOOD COUNT 4.71 10^6/uL (3.72-5.28); RED CELL DISTRIBUTION WIDTH 12.6 % (11.5-14.0); SEGMENTED NEUTROPHILS % (AUTO) 71.1 % (42-78); TOTAL CELLS COUNTED % (AUTO) 100 %; WHITE BLOOD COUNT 8.7 10^3/uL (4.0-10.5)
--- NOTE | 2019-09-02 12:57 | ER Document Report ---
ED GI/ - General Chief Complaint: Vaginal Bleeding Stated Complaint: VAGINAL BLEEDING Time Seen by Provider: 09/02/19 12:34 Primary Care Provider: SANTOS RAMIREZ MD [ACTIVE STAFF] - Follow up as needed Notes: 43-year-old woman presents to the emergency department with spotting vaginal bleeding for the past 2 days. She is 5 para 4, 11-week intrauterine . He has been going to the health department, states that she never had spotting with her previous pregnancies and concerned that she may be having some difficulties from the . She is also, denying cramping abdominal pain or passage of tissue. TRAVEL OUTSIDE OF THE [place] IN LAST 30 DAYS: No - Related Data Allergies/Adverse Reactions: No Known Allergies Allergy (Verified 04/26/18 21:22) Home Medications: kids multivitamin gummies Past Medical History - Social History Smoking Status: Former Smoker Family History: Reviewed & Not Pertinent Patient has homicidal ideation: No - Past Medical History Cardiac Medical History: Denies: Hx Coronary Artery Disease, Hx Heart Attack, Hx Hypertension Pulmonary Medical History: Denies: Hx Asthma, Hx Bronchitis, Hx COPD, Hx Pneumonia Neurological Medical History: Denies: Hx Cerebrovascular Accident, Hx Seizures Musculoskeletal Medical History: Denies Hx Arthritis Psychiatric Medical History: Reports: Hx Depression Past Surgical History: Denies: Hx Pacemaker - Immunizations Hx Diphtheria, Pertussis, Tetanus Vaccination: No Review of Systems - Review of Systems Notes: Constitutional: Negative for fever. HENT: Negative for sore throat. Eyes: Negative for visual changes. Cardiovascular: Negative for chest pain. Respiratory: Negative for shortness of breath. Gastrointestinal: Negative for abdominal pain, vomiting or diarrhea. Genitourinary: + Spotting vaginal bleeding Musculoskeletal: Negative for back pain. Skin: Negative for rash. Neurological: Negative for headaches, weakness or numbness. 10 point ROS negative except as marked above and in HPI. Physical Exam - Vital signs Vitals: Temp Pulse Resp BP Pulse Ox 98.3 F 85 14 139/72 H 99 09/02/19 11:34 09/02/19 11:34 09/02/19 11:34 09/02/19 11:34 09/02/19 11:34 - Notes Notes: PHYSICAL EXAMINATION: Physical Exam: General: Well-nourished well-developed in no acute distress HEENT: NC/AT, pupils equal round and reactive to light, MM moist,nares clear, oropharynx clear, airway patent Neck: supple, no adenopathy, no masses. Good range of motion Lungs: clear, no wheezing, no rales no rhonchi CVS: Regular rate and rhythm no murmur gallop or rub Abdomen: Gravid, soft, active, nontender, no masses, no hepatosplenomegaly Ext: No edema, clubbing or cyanosis. Neuro: Alert and responsive, moving all 4 extremities on command, cranial nerves intact, no focal findings Skin: Intact no open lesions, no rash PSYCH: Normal mood, normal affect. Course - Re-evaluation Re-evalutation: 09/02/19 14:18 Ultrasound revealed 1.8 cm possible gestational sac with no pole. The cervix is closed. The hCG was right at 1500 and the patient had an episode where she passed large amount of bloody clot when she went to the bathroom here in the emergency department. I explained to the patient she is., Will need follow-up with the DISTRESSER. She states she has an appointment on Wednesday. There is a good chance that she has already miscarried the . She is instructed to use Tylenol for pain and may return to the emergency department if her symptoms are worsening or if she has other concerns. Patient understands this plan and is ready for discharge. - Vital Signs Vital signs: Temp Pulse Resp BP Pulse Ox 98.3 F 85 14 139/72 H 99 09/02/19 12:07 09/02/19 11:34 09/02/19 11:34 09/02/19 11:34 09/02/19 11:34 - Laboratory Result Diagrams: 09/02/19 12:00 Laboratory results interpreted by me: 09/02/19 09/02/19 12:00 13:00 Beta HCG, Quant 1591.30 H Urine Blood MODERATE H Urine Urobilinogen 2.0 H I have reviewed laboratory data and used this information for the treatment de cisions regarding the patient. - Diagnostic Test Radiology reviewed: Image reviewed, Reports reviewed - OB ultrasound: 1.8 cm possible gestational sac no pole noted, cervix is closed. Discharge - Discharge Clinical Impression: Abnormal vaginal bleeding, Threatened in first trimester Condition: Good Disposition: HOME, SELF-CARE Instructions: Acetaminophen, Bleeding During Early ([facility]), Threatened Miscarriage ([facility]) Additional Instructions: You were seen in the emergency department with a episode of bleeding/spotting in . There is possibility that you miscarried the , however, please follow-up with your OB appointment on Wednesday for further testing. You will need a repeat hCG and repeat ultrasound. The symptoms are worsening or if you have other concerns she may return to the emergency department for recheck. HOME CARE INSTRUCTIONS & INFORMATION: Thank you for choosing us for your medical needs. We hope you're satisfied with the care you received. After you leave, you must properly care for your problem and, at the same time, observe its progress. Any condition can change. Some illnesses can change rapidly over hours or days. If your condition worsens, return to the Emergency Department or see your physician promptly. ABOUT YOUR X-RAYS AND EKG'S: If you had an EKG or X-rays taken, they have been read by the Emergency Physician. The X-rays and EKG's will also be read by a Radiologist or Flexboard Operator within 24 hours. If discrepancies are noted, you will be notified by telephone. Please be certain the ED has a correct telephone number & address where you can be reached. Also, realize that some fractures or abnormalities do not show up on initial X-rays. If your symptoms continue, see your physician. ABOUT YOUR LABORATORY TEST: If you had laboratory tests, the results have been reviewed by the Emergency Physician. Some test results (for example cultures) may not be available for several days. You will be contacted if any test result shows you need additional treatment. Please be certain the ED has a correct telephone number and address where you can be reached. ABOUT YOUR MEDICATIONS: You will receive instructions on how to take your medicine on the prescription label you receive. Additional information may be provided by the Pharmacy. If you have questions afterwards, call the ED for clarification or further instructions. Some prescribed medications may cause drowsiness. Do not perform tasks such as driving a car or operating machinery without consulting your Pharmacist. If you feel you need a refill of pain medication, your condition will need re-evaluation. Please do not call for a refill of any medication. ABOUT YOUR SIGNATURE: Signature of this document acknowledges to followin. Understanding that you received emergency treatment and that you may be released before al medical problems are known or treated. Please be certain the ED has a correct phone number & address where you can be reached. 2. Acknowledgement that you will arrange for follow-up care as recommended. 3. Authorization for the Emergency Physician to provide information to your follow-up Physician in order to maximize your care. AT ANY TIME, IF YOUR SYMPTOMS CHANGE SIGNIFICANTLY OR WORSEN OR YOU DEVELOP NEW SYMPTOMS, RETURN TO THE EMERGENCY DEPARTMENT IMMEDIATELY FOR RE-EVALUATION. OUR GOAL IS TO PROVIDE EXCELLENT MEDICAL CARE! WE HOPE THAT WE HAVE MET YOUR EXPECTATIONS DURING YOUR EMERGENCY DEPARTMENT VISIT AND THAT YOU FEEL YOU HAVE RECEIVED EXCELLENT CARE! Referrals: SANTOS RAMIREZ MD [ACTIVE STAFF] - Follow up as needed
[2019-09-02 13:20] LABS: APPEARANCE,URINE CLEAR; BILIRUBIN,URINE NEGATIVE (NEGATIVE); COLOR,URINE YELLOW; GLUCOSE, URINE NEGATIVE (NEGATIVE); KETONES,URINE NEGATIVE (NEGATIVE); LEUKOCYTE ESTERASE,URINE NEGATIVE (NEGATIVE); NITRITE,URINE NEGATIVE (NEGATIVE); PROTEIN,URINE NEGATIVE (NEGATIVE); URINE SPECIFIC GRAVITY 1.011
--- NOTE | 2019-09-02 13:27 | RADIOLOGY REPORT (SQ) ---
EXAM DESCRIPTION: U/S OB TRANSVAGINAL W/O DOP IMAGES COMPLETED DATE/TIME: 09/02/2019 1:13 pm REASON FOR STUDY: 11-week intrauterine spotting COMPARISON: None. TECHNIQUE: Limited transabdominal grayscale ultrasound for evaluation of specific requested obstetri lukasz parameters. LIMITATIONS: None. FINDINGS: CERVICAL LENGTH: 4.7 cm Closed. 1.8 cm possible gestational sac in the lower uterine segment extending to the upper cervical canal. No pole identified. OTHER: No other significant findings. IMPRESSION: 1.8 cm possible gestational sac in the lower uterine segment extending to the upper cerv ical canal. No pole identified. Trimester of : First trimester - 0 to 13 weeks. TECHNICAL DOCUMENTATION: JOB ID: [id number] [id number] 2010 [employer]- All Rights Reserved Reading location - IP/workstation name: [email or web address]
[2019-09-02] MEDS ORDERED: ACETAMINOPHEN 325 MG TABLET PO ONE (14:02)
== END 2019-09-02 14:37 | disposition home or self-care (01) ==
LOC: ER 11:30
DX: O20.0 Threatened abortion (principal); O26.891 Other specified pregnancy related conditions, first trimester; R10.9 Unspecified abdominal pain; Z3A.11 11 weeks gestation of pregnancy; Z87.891 Personal history of nicotine dependence
CPT/HCPCS: 99284; 86900; 86901; 36415; 84702; 85025; 81001; 76817; J3490